=== PATIENT | female | born 1970 | race Caucasian/White ===

== ENCOUNTER → 2019-03-30 | Outpatient (CLI) | payer OTHER ==
[~2019-03-30] MED LIST: ATOR20TA38 PO; IBUP-1982 PO; OMEP20CA17 PO; RANI300T3 PO
== END | disposition home or self-care (01) ==
LOC: NUC 11:03
PROVIDERS: ATTEND Surgery Surgical Oncology
DX: K82.4 Cholesterolosis of gallbladder (principal)
CPT/HCPCS: 78226; A9537